=== PATIENT | male | born 1985 | race Caucasian/White ===

== ENCOUNTER 2025-05-17 21:17 | Emergency (ER) | payer OTHER, SELFPAY ==
[2025-05-17 21:21] VITALS: BP 143/92
[2025-05-17 21:35] LABS: Hematocrit 41.4 % (39.0-52.0); Hemoglobin 15.0 g/dL (13.0-18.0); Mean Corp Hgb Conc. 36.2 g/dL (33.0-37.0); Mean Corpuscular Volume 84.8 fL (80.0-94.0); Nucleated Red Blood Cells % 0 % (-); Platelet Count 246 10^3/uL (130-400); Red Cell Dist. Width 12.2 % (11.5-14.5)
[2025-05-17 21:51] LABS: ALT (SGPT) 23 U/L (0-50); AST (SGOT) 19 U/L (17-59); Albumin 4.8 g/dl (3.5-5.0); Alkaline Phosphatase 59 U/L (38-126); Blood Urea Nitrogen 12 mg/dl (9-20); Calcium 9.1 mg/dl (8.4-10.2); Carbon Dioxide 25 mmol/L (22-30); Chloride 101 mmol/L (98-107); Glucose 128 mg/dl (70-99); Potassium 3.6 mmol/L (3.5-5.1); Sodium 133 mmol/L (135-145); Total Protein 7.7 g/dl (6.3-8.2); eGFR > 60.00
--- NOTE | 2025-05-17 22:42 | ED.GENMED ---
History of Present Illness
General
Chief Complaint: Headache
Source: patient
Exam Limitations: none
Time Seen by Provider: 05/17/25 21:50
Nursing documentation reviewed up to this point in time: agreed with
History of Present Illness
History of Present Illness:
Patient presents to ED secondary to persistent headache over the past 4 days, along with confusion and disorientation. On the way to ED this evening, patient had 1 vomiting episode. Denies of blurred vision. Denies dizziness. No loss of
sensation or weakness. However, patient does report transient sensation of right arm weakness, which now has resolved. Denies previous history of similar symptoms. Denies recent illness. Denies recent change in medications or diet. Patient
otherwise is healthy without significant medical history.
Review of Systems
Review of Systems
Allergies reviewed?: Yes
All Other Systems: ROS reviewed and negative except as documented in HPI and ROS
Constitutional: Reports no symptoms; Denies fever
Respiratory: Reports no symptoms
Cardiac: Reports no symptoms
ABD/GI: Reports nausea and vomiting
Musculoskeletal: Reports no symptoms
Skin: Reports no symptoms
Neurological: Reports headache
Phy Exam
Physical Exam
Physical Exam:
Physical Exam
General: mild distress, not acutely ill. afebrile
Head: nc/at. eomi
Neck: supple. no meningeal signs.
Heart: s1/s2 regular rate and rhythm
Lungs: no acute respiratory distress. clear bilaterally
Abdomen: normal bowel sounds. not tender.
Neuro: alert and oriented x 3. no focal neurological deficits. normal speech. normal finger to nose testing
Skin: no rash
Psychiatric: well kept. interactive and cooperative
Extremities: no edema. no calf tenderness.
Course
Orders/Labs/Results
Orders:
Orders
05/17/25 21:27
CMP [Comprehensive Metabolic Panel] Urgent
Complete Blood Count/With Diff Urgent
Lyme Progressive Urgent
Comment: ADD ON
05/17/25 21:32
CT Head W/wo Iv Contrast Urgent
Reason For Exam: ZAPATA/fogginess
05/17/25 22:02
Add On- LAB Urgent
Tests Added?: lyme progressive
Abnormal Lab Results
05/17/25
21:27
Abs Immat Gran (auto) 0.1 H 10^3/uL
(0-0.05)
Absolute Neuts (auto) 6.9 H 10^3/uL
(1.4-6.5)
Absolute Monos (auto) 0.7 H 10^3/uL
(0.1-0.6)
Lymphocytes % 20.0 L %
(20.5-51.1)
Sodium 133 L mmol/L
(135-145)
Glucose 128 H mg/dl
(70-99)
05/17/25 21:27
05/17/25 21:27
Vital Signs
Initial and Last Documented VS:
Initial Vital Signs
Temp Pulse Resp BP Pulse Ox
98.3 F 60 18 143/92 98
05/17/25 21:21 05/17/25 21:21 05/17/25 21:21 05/17/25 21:21 05/17/25 21:21
Last Documented Vital Signs
Temp Pulse Resp BP Pulse Ox
98.3 F 90 18 138/100 98
05/17/25 21:21 05/18/25 00:40 05/17/25 21:21 05/18/25 00:40 05/18/25 00:40
MDM/Problems Addressed
MDM/Problems Addressed:
CT head report reviewed and discussed with patient and spouse. In addition, discussed with neurosurgery at [facility], . Recommends transfer for further evaluation and treatment.
Transfer consent on the chart.
Pt remains neurovascularly intact during observation
*Pulse Oximetry
SaO2: 98
Oxygen Mode of Delivery: Room air
Patient hypoxic: no
*Critical Care Note
Total Time (30-74mins, 75-104mins- exclusive of procedures): Not Applicable
ED Attending Note
-
Portions of this chart may have been created with voice recognition software.� Occasional wrong word or��sound alike� substitutions may have occurred due to the inherent limitations of voice recognition software.
Discharge Plan
Departure
Patient Disposition: Acute Care Hospital
Date of Disposition: 05/17/25
Time of Disposition: 23:39
Discharge Problem:
Colloid cyst of brain
Referrals:
NONE,* [Family Provider, Internal Medicine]
Hospital Transfer
Other hospital: [facility]
I certify that the patient requires transfer: Yes
Discussed case with accepting physician:
Reason for transfer: higher level of care, medical necessity, availability of service and specialties available
Interventions
Interventions:
*Risk Screen - Suicide Last Done: 05/17/25 21:21
*General Assessment Last Done: 05/18/25 00:41
*Neglect/Abuse Screening Last Done: 05/17/25 21:21
*ED- Fall Risk Assessment Last Done: 05/18/25 00:41
*Nursing Disposition Last Done: 05/18/25 00:55
ED- Neurological Assessment Last Done: 05/17/25 22:00
Discharge Date and Time
Discharge Date/Time: 05/18/25 00:55
Print Language: SYRIAC
[2025-05-18 00:40] VITALS: BP 138/100
[2025-05-19 11:42] LABS: Lyme Antibody Screen, EIA Negative (Negative)
== END 2025-05-18 00:55 | disposition short-term general hospital (02) ==
LOC: EMR 21:17
PROVIDERS: EMERGENCY PHYSICIAN Emergency Medicine
DX: G93.0 Cerebral cysts (principal)
CPT/HCPCS: 99285; 70470; 80053; 85025; 86618; Q9967